=== PATIENT | female | born 1990 | race Caucasian/White ===

== ENCOUNTER 2022-03-03 11:42 | Emergency (ER) | payer OTHER ==
[2022-03-03 12:58] LABS: BASOPHIL 0.4 % (0-2); EOSINOPHIL 1.8 % (0-5); HCT 41.3 % (37.0-47.0); HGB 13.4 g/dl (12.5-16.0); LYMPHOCYTE 35.6 % (15-48); MCH 30.5 pg (25.0-31.0); MCHC 32.4 g/dL (32.0-36.0); MCV 93.9 fL (78.0-100.0); MONOCYTE 6.7 % (0-12); MPV 9.4 fL (6.0-9.5); NEUTROPHIL 55.3 % (41-80); NRBC 0; PLT 212 K/uL (150-400); RDW 12.7 % (11.5-14.0); WBC 4.9 K/uL (4.0-10.5)
[2022-03-03 13:09] LABS: BILIRUBIN NEGATIVE (NEGATIVE); BLOOD NEGATIVE Ery/uL (NEGATIVE); CLARITY CLEAR (CLEAR); COLOR YELLOW (YELLOW); GLUCOSE (U) NORMAL (NORMAL); LEUKOCYTES NEGATIVE Leu/uL (NEGATIVE); NITRITE NEGATIVE (NEGATIVE); PROTEIN TRACE (LOW) mg/dL (NEGATIVE); SPECIFIC GRAVITY >=1.030 (1.001-1.030); UROBILINOGEN 0.2 mg/dL (0.2-1.0)
[2022-03-03 13:23] LABS: BACTERIA TRACE; MUCOUS MODERATE
[2022-03-03 13:46] LABS: ALBUMIN 4.1 g/dL (3.4-5.0); BILIRUBIN - TOTAL 0.6 mg/dL (0.2-1.0); CREATININE 0.64 mg/dL (0.51-0.95); GLOBULIN (CALCULATION) 3.9 g/dL; POTASSIUM 3.9 mmol/L (3.5-5.1)
[2022-03-03] MEDS ORDERED: ONDANSETRON ODT4 MG PO (14:10)
== END 2022-03-03 14:43 | disposition home or self-care (01) ==
LOC: FER 11:42
PROVIDERS: Emergency Medicine; Physician Assistant
DX: A08.4 Viral intestinal infection, unspecified (principal); Z88.0 Allergy status to penicillin; Z88.1 Allergy status to other antibiotic agents
CPT/HCPCS: 36415; 74018; 80053; 81001; 83690; 85025